=== PATIENT | female | born 1965 | race Caucasian/White ===

== ENCOUNTER 2018-04-10 11:35 | Emergency (ER) | payer OTHER ==
[~2018-04-10] VITALS: Ht 157.5 cm; Wt 58.1 kg
[2018-04-10 11:35] VITALS: BP_SYST 141
[2018-04-10] MEDS ORDERED: ASPIRIN 81 MG TAB.CHEW PO ONE ×2 (12:00→12:45)
[2018-04-10 12:28] LABS: CALCIUM 9.1 mg/dL (8.4-11.0); CREATININE 0.9 mg/dL (0.55-1.30)
[2018-04-10 12:31] LABS: BASOPHILS % (AUTO) 0.7 % (0.0-2.0); EOSINOPHILS # (AUTO) 0.6 K/uL (0.0-0.4); EOSINOPHILS % (AUTO) 9.1 % (0.0-4.0); HEMATOCRIT 38.7 % (36-48); HEMOGLOBIN 12.9 g/dL (12.0-16.0); LYMPHOCYTES # (AUTO) 1.9 K/uL (1.0-5.5); MEAN CORPUSCULAR HEMOGLOBIN 29 pg (27-31); MEAN CORPUSCULAR HGB CONC 33 % (32-36); MEAN CORPUSCULAR VOLUME 88 fL (79.0-98.0); MONOCYTES # (AUTO) 0.5 K/uL (0.0-1.0); MONOCYTES % (AUTO) 7.1 % (1.7-9.3); NEUTROPHILS # (AUTO) 3.6 K/uL (1.8-7.7); NEUTROPHILS % (AUTO) 55.1 % (40.0-70.0); PLATELET COUNT (AUTO) 254 K/uL (130-430); RED BLOOD CELL COUNT(AUTO) 4.38 MIL/uL (4.2-6.2); RED CELL DISTRIBUTION WIDTH 13.7 % (9.0-15.0); WHITE BLOOD COUNT (AUTO) 6.6 K/uL (4.8-10.8)
[2018-04-10 12:32] LABS: ALBUMIN 3.2 g/dL (3.4-4.8); TOTAL BILIRUBIN 0.3 mg/dL (0.0-1.0)
[2018-04-10 12:43] LABS: PROTHROMBIN TIME 10.2 SECS (9.5-12.5)
[2018-04-10] MEDS ORDERED: IOHEXOL 350 mgI/mL, 150 ML INFUS..BTL IV ONE (13:45)
[2018-04-10] MEDS ORDERED: DIPHENHYDRAMINE INJ 50 MG/ML VIAL IVP ONE (13:45)
[2018-04-10 15:40] VITALS: BP_SYST 131
== END 2018-04-10 15:40 | disposition home or self-care (01) ==
LOC: SED 11:35
DX: R07.89 Other chest pain (principal); F32.9 Major depressive disorder, single episode, unspecified; R03.0 Elevated blood-pressure reading, without diagnosis of hypertension; Z88.8 Allergy status to other drugs, medicaments and biological substances
CPT/HCPCS: 36415; 71045; 71275; 80053; 80061; 82550; 83880; 84484; 85025; 85379; 85610; 85730; 93005; 93971; 96374; 99285; J1200; J7030; Q9967